=== PATIENT | female | born 1980 | race Caucasian/White ===

== ENCOUNTER 2017-08-29 11:22 | Emergency (ER) | payer OTHER ==
[2017-08-29] MEDS ORDERED: Ketorolac INJ* 30 MG/ML 1 ML VIAL IV PUSH ONE (11:43)
[2017-08-29] MEDS ORDERED: NS 0.9% 1000 ML* 1,000 ML IV ONE (11:44)
[2017-08-29] MEDS ORDERED: Ketorolac INJ* 30 MG/ML 1 ML VIAL ONE (11:55)
[2017-08-29 12:29] LABS: Hematocrit 38 % (35-47); Hemoglobin 12.8 g/dl (12.0-16.0); Mean Corpuscular HGB Conc 34 g/dl (31-36); Mean Corpuscular Hemoglobin 33 pg (27-31); Mean Corpuscular Volume 98 fL (80-97); Mean Platelet Volume 7 um3 (7.4-10.4); Red Blood Count 3.87 10^6/ul (4.0-5.4); Red Cell Distribution Width 13 % (10.5-15); Urine Bilirubin Negative (Negative); Urine Glucose Negative (Negative); Urine Nitrite Negative (Negative); White Blood Count 4.9 10^3/ul (3.5-10.8)
[2017-08-29 13:26] LABS: Anion Gap 5 mmol/L (2-11); BUN/Creatinine Ratio 15.1 (8-20); Blood Urea Nitrogen 11 mg/dL (6-24); CO2 Carbon Dioxide 29 mmol/L (22-32); Calcium 9.1 mg/dL (8.6-10.3); Chloride 106 mmol/L (101-111); EGFR African American 117.4 (>60); EGFR Non-African American 91.3 (>60); Glucose 89 mg/dL (70-100); Potassium 4.3 mmol/L (3.5-5.0); Sodium 140 mmol/L (133-145)
[2017-08-29 13:27] LABS: ALT 14 U/L (7-52); AST 15 U/L (13-39); Albumin 4.5 g/dL (3.2-5.2); Alkaline Phosphatase 54 U/L (34-104); C Reactive Protein 8.75 mg/L (< 5.00); Globulin 2.4 g/dL (2-4); Lipase 18 U/L (11.0-82.0); Total Protein 6.9 g/dL (6.4-8.9)
--- NOTE | 2017-08-29 13:56 | RAD ---
Indication: Right flank pain. CT of the abdomen and pelvis was performed without oral or IV contrast administration. Coronal and sagittal reconstructed images were obtained. Lung bases demonstrate no pleural fluid, nodules or masses. Heart is of normal size without evidence of pericardial effusion. Liver is normal in size. No focal lesions or intrahepatic ductal dilatation is noted. The gallbladder is partially contracted. No evidence of calcified gallstones are noted. The spleen is normal in size. The pancreas demonstrates no mass or pancreatic duct dilatation. Common duct is not dilated. No adrenal lesions are noted. The kidneys demonstrate no hydronephrosis in either kidney. No hydroureter is noted. No retroperitoneal or pelvic adenopathy is noted. CT of the pelvis demonstrates urinary bladder to be distended. No definite calculi is identified. The uterus and ovaries are grossly unremarkable. The appendix is visualized and is normal. No dilated loops of bowel are noted. The bony structures are otherwise unremarkable. IMPRESSION: No evidence of obstructive uropathy is noted. Distended urinary bladder.
[2017-08-29 15:41] VITALS: BP 97/59
--- NOTE | 2017-08-29 18:36 | ED ---
Iván Garcia Angela, scribed for Juan Newsome MD on 08/29/17 at 1140 . Back Pain - HPI Summary HPI Summary: This pt is a 36 y/o female presenting to [facility] c/o intermittent right flank pain since this morning. Pt reports that yesterday she began to feel feverish and was achy. Pt notes that this morning while she was urinating she felt a shooting pain on her right flank. She states her pain is intermittent and it is relative to position. Her pain comes in waves and at its worse her pain is rated 8 out of 10 in severity. Pt has never had this pain before. She denies urinary frequency, urgency, dysuria. LMP: this past month. Pt states "not real period" but it has been the first time after (she has a 9 month old baby). Pt is breast feeding. She denies possibility of . No PMHx of kidney stones. - History of Current Complaint Chief Complaint: EDFlankPain Stated Complaint: RIGHT FLANK PAIN Time Seen by Provider: 08/29/17 11:28 Hx Obtained From: Patient Onset/Duration: Lasting Hours Onset/Duration: Started Hours Ago Timing: Intermittent Back Pain Location: Is Discrete @ - right flank Pain Intensity: 8 Pain Scale Used: 0-10 Numeric Character: Sharp Aggravating Symptom(s): Other Alleviating Symptom(s): Position Associated Signs And Symptoms: Positive: Flank Pain. Negative: Weakness, Numbness, Tingling, Abdominal Pain, Bladder Incontinence, Bowel Incontinence, Other - urinary frequency, urgency, dysuria - Allergies/Home Medications Allergies/Adverse Reactions: Allergies Allergy/AdvReac Type Severity Reaction Status Date / Time Codeine Allergy Stomach Verified 08/29/17 11:36 Cramps PMH/Surg Hx/FS Hx/Imm Hx Endocrine/Hematology History: Denies: Hx Diabetes Cardiovascular History: Denies: Hx Hypertension History: Denies: Hx Kidney Stones Infectious Disease History: No Infectious Disease History: Denies: Traveled Outside the [place] in Last 30 Days - Family History Known Family History: Positive: Hypertension - mother - Social History Alcohol Use: Weekly Substance Use Type: Reports: None Smoking Status (MU): Never Smoked Tobacco Review of Systems Positive: Fever - subjective, yesterday. Negative: Chills ENT: Negative Cardiovascular: Negative Negative: Abdominal Pain, Vomiting, Nausea Positive: flank pain - right sided. Negative: dysuria, frequency, urgency Skin: Negative Neurological: Negative All Other Systems Reviewed And Are Negative: Yes Physical Exam - Summary Physical Exam Summary: VITAL SIGNS: Reviewed. GENERAL: Patient is a well-developed and nourished female who is lying comfortable in the stretcher. Patient is not in any acute respiratory distress. HEAD AND FACE: No signs of trauma. No ecchymosis, hematomas or skull depressions. No sinus tenderness. EYES: PERRLA, EOMI x 2, No injected conjunctiva, no nystagmus. EARS: Hearing grossly intact. Ear canals and tympanic membranes are within normal limits. MOUTH: Oropharynx within normal limits. NECK: Supple, trachea is midline, no adenopathy, no JVD, no carotid bruit, no c- spine tenderness, neck with full ROM. CHEST: Symmetric, no tenderness at palpation LUNGS: Clear to auscultation bilaterally. No wheezing or crackles. CVS: Regular rate and rhythm, S1 and S2 present, no murmurs or gallops appreciated. ABDOMEN: Soft, non-tender. No signs of distention. No rebound no guarding, and no masses palpated. Bowel sounds are normal. Right flank pain EXTREMITIES: FROM in all major joints, no edema, no cyanosis or clubbing. NEURO: Alert and oriented x 3. No acute neurological deficits. Speech is normal and follows commands. SKIN: Dry and warm Triage Information Reviewed: Yes Vital Signs On Initial Exam: Initial Vitals Temp Pulse Resp BP Pulse Ox 98.4 F 100 18 119/79 100 08/29/17 11:24 08/29/17 11:24 08/29/17 11:24 08/29/17 11:24 08/29/17 11:24 Vital Signs Reviewed: Yes - Bradford Coma Scale Coma Scale Total: 15 Diagnostics - Vital Signs Vital Signs Temp Pulse Resp BP Pulse Ox 08/29/17 11:32 107 100 08/29/17 11:24 98.4 F 100 18 119/79 100 - Laboratory Result Diagrams: 08/29/17 11:45 08/29/17 11:45 Lab Statement: Any lab studies that have been ordered have been reviewed, and results considered in the medical decision making process. - CT Abd/Pel CT CT Interpretation: No Acute Changes - IMPRESSION: No evidence of obstructive uropathy is noted. Distended urinary bladder. ED physician has reviewed this radiology report and agrees. CT Interpretation Completed By: Radiologist Re-Evaluation - Re-Evaluation First Eval Re-Evaluation Time: 14:55 Comment: Pt is feeling much better. She reports her symptoms have resolved. Back Pain Course/Dx - Course Assessment/Plan: This pt is a 36 y/o female presenting to [facility] c/o intermittent right flank pain since this morning. Pt reports that yesterday she began to feel feverish and was achy. Pt notes that this morning while she was urinating she felt a shooting pain on her right flank. She states her pain is intermittent and it is relative to position. Her pain comes in waves and at its worse her pain is rated 8 out of 10 in severity. Pt has never had this pain before. She denies urinary frequency, urgency, dysuria. LMP: this past month. Pt states "not real period" but it has been the first time after (she has a 9 month old baby). Pt is breast feeding. She denies possibility of . No PMHx of kidney stones. Test results without any significant abnormalities. Urinalysis is negative. CT is negative for kidney stones. In the ED course, the pt was given IV fluids and toradol. After toradol all her symptoms resolved. The pt was observed for a couple of hours, the pain did not return. She will discharged home with follow up from her PCP. Pt is hemodynamically stable, alert and oriented x3. - Diagnoses Provider Diagnoses: Flank pain Discharge - Discharge Plan Condition: Stable Disposition: HOME Prescriptions: Naproxen TAB* [Naprosyn 250 mg TAB*] 500 mg PO Q8H PRN #20 tab PRN Reason: Pain Patient Education Materials: Flank Pain (ED) Additional Instructions: Please follow up with your primary care provider. The documentation as recorded by the Iván adhikari Angela accurately reflects the service I personally performed and the decisions made by me, Juan Newsome MD.
== END 2017-08-29 15:44 | disposition home or self-care (01) ==
LOC: ED 11:22
DX: R10.84 Generalized abdominal pain (principal)
CPT/HCPCS: 36415; 74176; 80053; 81003; 83690; 84702; 85025; 86140; 96375; 96376; 99283; J1885